=== PATIENT | female | born 1960 | race Caucasian/White ===

== ENCOUNTER 2019-06-18 16:47 | Emergency (ER) | payer BC ==
[~2019-06-18 16:47] MED LIST: Iopamidol 370 76% 50 ML VIAL FS ONE
[2019-06-18 17:13] LABS: #Basophils 0.1 thou/uL (0.0-0.2); #Eosinphils 0.1 thou/uL (0.0-0.7); #Lymphocytes 2.6 thou/uL (1.20-3.40); #Monocytes 0.5 thou/uL (0.11-0.59); #Neutrophils 3.2 thou/uL (1.40-6.50); %Basophils 1.4 % (0.0-1.0); %Eosinophils 1.8 % (0.0-10.0); %Lymphocytes 40.4 % (21.0-51.0); %Monocytes 6.9 % (0.0-10.0); %Neutrophils 49.5 % (42.0-75.0); Hemoglobin 12.1 g/dL (12.0-16.0); Mean Corpuscular HGB CONC 35.1 g/dL (32.0-36.0); Platelet Count 328 thou/uL (130-400); Red Blood Cell (RBC) Count 3.35 mill/uL (4.20-5.40); White Blood Cell (WBC) Count 6.4 thou/uL (4.8-10.8)
[2019-06-18 17:17] LABS: PTT 24.7 SEC (22.9-36.1)
[2019-06-18 17:18] LABS: INR-International Normal Ratio 0.9
[2019-06-18 17:25] LABS: ALT (SGPT) 21 U/L (8-55); AST (SGOT) 27 U/L (5-34); Albumin 4.4 g/dL (3.5-5.0); Alkaline Phosphatase 85 U/L (40-110); Anion Gap 13 mmol/L (10-20); BUN (Urea Nitrogen) 22 mg/dL (9.8-20.1); Bilirubin, Total 0.3 mg/dL (0.2-1.2); CK (CPK) 69 U/L (29-168); Calc. Creatinine Clearance 0 mL/min (70-130); Calcium 9.4 mg/dL (7.8-10.44); Carbon Dioxide 28 mmol/L (22-29); Chloride 104 mmol/L (98-107); Estimated GFR-MDRD 50; Globulin 2.7 g/dL (2.4-3.5); Glucose 100 mg/dL (70-105); Potassium 3.8 mmol/L (3.5-5.1); Protein, Total 7.1 g/dL (6.0-8.3); Sodium 141 mmol/L (136-145)
--- NOTE | 2019-06-18 17:35 | CT ---
CT CERVICAL SPINE: HISTORY: Neck pain. FINDINGS: There are mild to moderate degenerative changes of the cervical spine. Loss of disk space at C4-C5 an d C5-C6. Slight posterolisthesis at C5-C6 with degenerative hypertrophic changes. No evidence of cervical spine fracture. IMPRESSION: Mild to moderate degenerative changes of the mid cervical spine. No fracture or acute abnormality. POS: AGW
--- NOTE | 2019-06-18 17:44 | CT ---
CT HEAD WITHOUT CONTRAST: INDICATIONS: Stroke alert. Facial numbness. FINDINGS: The ventricles have normal size and position. No evidence of intracranial mass or hemorrhage. No evid ence of infarct. The sinuses and mastoids are clear. IMPRESSION: Unremarkable head CT. Findings relayed to the emergency department at 5:23 p.m. CODE CR POS: CARMELA
--- NOTE | 2019-06-18 20:34 | MRI ---
MRI BRAIN NONCONTRAST: DATE: 06/18/2019 8:25 PM HISTORY: 59-year-old female with facial numbness. FINDINGS: A standard noncontrast brain MRI was ordered. The ventricles are normal in size and configuration. There is no major intra-axial signal abnormality , restricted diffusion, midline shift or any other mass effect, recent intra-axial hemorrhage, or extra-axial fluid collection. The normal CSF signal in left Meckel's cave is completely effaced by a 1.3 x 0.9 cm mass with heterogeneous intermediate T2 and FLAIR signal intensity. IMPRESSION: 1. 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 2. On an elective basis, MRI of the brain with and without contrast with dedicated cranial nerve prot ocol (thin slices through lower skull) is recommended. 3. No acute cerebral infarction or any pathology of the brain.
[2019-06-18] MEDS ORDERED: Lorazepam 2 MG/ML VIAL ONE (21:16)
--- NOTE | 2019-06-18 21:46 | CT ---
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 Evaluate for primary tumor and other metastasis. TECHNIQUE: IV iodinated contrast media: Administered Oral contrast media: Not administered Single phase scans of thorax, abdomen, and pelvis. FINDINGS: Right kidney is extremely small and either nonfunctioning or severely hypofunctioning. 1.3 cm right r enal cyst. Normal left kidney, adrenals, pancreas, liver, spleen. Lungs are clear. No mediastinal or hilar lymph adenopathy. Atherosclerotic calcification without aneurysm of thoracic and abdominal aorta. No destructive osseous lesion. No pleural effusion. No small bowel dilation. Normal urinary bladder. No axillary, elba hepatis, mesenteric, or iliac chain, or inguinal, lymphadenopathy. No obvious large apple core colonic tumor mass. No ascites. IMPRESSION: 1. No evidence of malignant neoplasm. 2. Very small, nonfunctioning or severely hypofunctioning right kidney. 3. Otherwise negative.
== END 2019-06-18 22:40 | disposition home or self-care (01) ==
LOC: ERS 16:47
DX: D36.10 Benign neoplasm of peripheral nerves and autonomic nervous system, unspecified (principal); F41.9 Anxiety disorder, unspecified
CPT/HCPCS: 36416; 70450; 70551; 71260; 72125; 74177; 80053; 82550; 84484; 85025; 85610; 85730; 93005; 96374; J2060; Q9967

== ENCOUNTER 2019-06-30 07:41 | Outpatient (CLI) | payer BC ==
--- NOTE | 2019-06-30 11:55 | MRI ---
MRI BRAIN WITH AND WITHOUT CONTRAST: DATE: 06/30/2019 HISTORY: A 59-year-old female with left facial hypesthesia (numbness). Tumor found in Meckel's cave on noncont rast standard brain MRI of 06/18/2019. TECHNIQUE: Multiple sequences obtained in axial, sagittal, and coronal planes; pre and post IV injection of gado linium-based contrast agent: MultiHance 9 mL. In addition to standard brain sequences, additional thin slice sequences through the skull base, down to submandibular levels. FINDINGS: There is an approximately 1.3 x 1.1 x 1.1 cm well circumscribed mass occupying the left Meckel's cave , completely effacing the CSF signal within Meckel's cave and laterally minimally indenting the adjac ent medial portion of the anterior left temporal lobe without causing adjacent vasogenic edema. It is intermediate in signal intensity, isointense to brain on pre-contrast T1WI, T2WI and FLAIR, and diff usely enhances. There is no destructive osseous lesion in the clivus. There is no abnormal enhancemen t or mass involving the pterygopalatine fossa, orbital apex, orbits or cisternal portion of the trige gabrielle nerve. The brainstem, including the ana, is normal. The mass contacts the posterior edge of th e left cavernous sinus but does not invade it. The foramina ovale and foramina rotunda demonstrate no obvious mass or abnormal enhancement. The optic chiasm is normal. No suprasellar mass. No evidence o f parotid neoplastic tumor. Parapharyngeal space and nasopharynx are normal. There is no intra-axial signal abnormality or abnormal intra-axial enhancement or mass. Ventricles ar e normal in size and configuration. No mass effect, midline shift, extraaxial fluid collection, restr icted diffusion or recent or remote intra-axial hemorrhage. No extraaxial fluid collection. 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 EULALIO Vieira POS: SARAH
== END 2019-06-30 07:42 | disposition home or self-care (01) ==
LOC: TBSIIMAG 07:41 → SCSMRI 07:42
PROVIDERS: ATTEND Neurological Surgery
DX: D49.6 Neoplasm of unspecified behavior of brain (principal)
CPT/HCPCS: 70553; 82565

== ENCOUNTER 2020-09-19 11:37 | Outpatient (CLI) | payer BC ==
--- NOTE | 2020-09-19 12:28 | RAD ---
EXAM: Chest PA and lateral: HISTORY: Shortness of breath COMPARISON: none FINDINGS: Lung archer are clear. Vascular markings are normal. Small effusions blunt the posterior gutters. Cardiomegaly. Mediastinum otherwise unremarkable. Osseous structures are unremarkable. IMPRESSION: Cardiomegaly. Small bilateral effusions.
== END 2020-09-19 11:38 | disposition home or self-care (01) ==
LOC: BICRAD 11:37
PROVIDERS: ATTEND Specialist
DX: R06.02 Shortness of breath (principal); J90 Pleural effusion, not elsewhere classified; I51.7 Cardiomegaly
CPT/HCPCS: 71046

== ENCOUNTER 2021-05-25 08:58 | Outpatient (CLI) | payer BC | END 2021-05-25 08:59 | disposition home or self-care (01) | LOC: BICRAD 08:58 | PROVIDERS: ATTEND Specialist | DX: R07.81 Pleurodynia (principal); I51.7 Cardiomegaly | CPT/HCPCS: 71110 ==